=== PATIENT | female | born 1970 ===

== ENCOUNTER 2023-06-28 20:13 | Emergency (ER) | payer MEDICAID, OTHER ==
[~2023-06-28] VITALS: Ht 170.2 cm; Wt 135.0 kg
[2023-06-28 21:52] LABS: Basophils # (auto) 0 10 ^3/uL (0-0.2); Basophils % (auto) 0.5 % (0.0-2.0); Eosinophils # (auto) 0.1 10 ^3/uL (0-0.8); Eosinophils % (auto) 1.4 % (0.0-7.0); Hematocrit 42.8 % (36.0-46.0); Hemoglobin 14.2 g/dL (12.2-16.2); Lymphocytes # (auto) 2.5 10 ^3/uL (0.4-5.4); Lymphocytes % (auto) 28.9 % (10.0-50.0); Mean Corpuscular Hemoglobin 29.6 pg (28.0-32.0); Mean Corpuscular Hgb Conc. 33.3 g/dL (32.0-36.0); Mean Corpuscular Volume 88.9 fL (80.0-100.0); Monocytes # (auto) 0.7 10 ^3/uL (0-1.3); Monocytes % (auto) 8.5 % (0.0-12.0); Neutrophils # (auto) 5.4 10 ^3/uL (1.6-8.6); Neutrophils % (auto) 60.7 % (37.0-80.0); Nucleated Red Blood Cells % 0.1 %; Red Blood Cells 4.82 10^6/uL (4.0-5.20); Red Cell Distribution Width 14.5 % (11.8-14.3); White Blood Cell 8.8 10^3/uL (4.4-10.8)
[2023-06-28 22:03] LABS: Alanine Aminotransferase 24 U/L (7-40); Albumin 4.5 g/dL (3.2-4.8); Alkaline Phosphatase 78 U/L (46-116); Anion Gap 10 (5-15); Aspartate Aminotransferase 18 U/L (13-40); BUN/Creatinine Ratio 16.9 (10.0-20.0); Blood Urea Nitrogen 10 mg/dL (9-23); Calcium 8.6 mg/dL (8.7-10.4); Carbon Dioxide 26 mmol/L (20-30); Chloride 104 mmol/L (98-107); Glucose 120 mg/dL (74-106); Magnesium 2.1 mg/dL (1.6-2.6); Potassium 3.5 mmol/L (3.5-5.1); Sodium 140 mmol/L (136-145)
[2023-06-28 22:04] LABS: Acetaminophen < 2.0 UG/ML (10.0-20.0); Bilirubin, Total 0.2 mg/dL (0.2-1.0); Total Protein 6.9 g/dL (5.7-8.2)
[2023-06-28 22:11] LABS: Salicylate < 3.0 mg/dL (2.8-20.0)
[2023-06-29 00:21] VITALS: TEMP 97.4
[2023-06-29 00:23] VITALS: PULSE 68; RESP 18; O2SAT 97
[2023-06-29 01:18] LABS: Urine Bacteria FEW /hpf (None Seen); Urine Blood Negative /uL (Negative); Urine Clarity Clear (Clear); Urine Protein, UAD Negative (Negative); Urine Specific Gravity 1.009 (1.001-1.035); Urine Urobilinogen Normal (Negative); Urine WBC 1 /hpf (0 - 5)
[2023-06-29 01:19] LABS: Urine Color Straw (Yellow)
[2023-06-29 01:31] LABS: Amphetamine Screen, Urine Neg (NEGATIVE)
[2023-06-29 01:32] LABS: Benzodiazephine Screen, Urine Neg (NEGATIVE)
[2023-06-29 01:33] LABS: Barbiturate Scree,Urine Neg (NEGATIVE); Cannabinoid Screen, Urine Neg (NEGATIVE); Cocaine Screen, Urine Neg (NEGATIVE); Opiate Scree,Urine Neg (NEGATIVE); Phencyclidine Screen, Urine Neg (NEGATIVE)
[2023-06-29 06:00] VITALS: BP 119/70; PULSE 57; RESP 18; O2SAT 97
== END 2023-06-29 14:15 | disposition left against medical advice (07) ==
LOC: ER 20:13 → EDBD 20:13 → ER 06-29 14:15
DX: T43.502A Poisoning by unspecified antipsychotics and neuroleptics, intentional self-harm, initial encounter (principal); R07.89 Other chest pain; Z88.5 Allergy status to narcotic agent; Z88.8 Allergy status to other drugs, medicaments and biological substances; Y92.89 Other specified places as the place of occurrence of the external cause
CPT/HCPCS: 36415; 80053; 80307; 80320; 80329; 81001; 83735; 85025; 93005